=== PATIENT | female | born 1990 | race Hispanic/Latino ===

== ENCOUNTER 2020-09-05 07:49 | Day surgery (SDC) | payer OTHER ==
[2020-09-05] MEDS ORDERED: Ringers Lactate 1,000 ML IV ONE ×3 (08:28→12:34)
[2020-09-05] MEDS ORDERED: CEFAZOLIN/SWI 1gm 1 GM/10 ML SYR ONE (08:28)
[2020-09-05 08:44] VITALS: O2SAT 100
[2020-09-05] MEDS ORDERED: LIDOCAINE 2% MPF 5 ML VIAL ONE (09:17)
[2020-09-05] MEDS ORDERED: MIDAZOLAM HCL 2 MG/2 ML INJ ONE (09:17)
[2020-09-05] MEDS ORDERED: propofoL 200 MG/20 ML VIAL IV ONE (09:17)
[2020-09-05] MEDS ORDERED: GLYCOPYRROLATE 0.2 MG/ML SYR ONE ×2 (09:17)
[2020-09-05] MEDS ORDERED: ROCURONIUM 50 MG/5 ML VIAL IV ONE ×2 (09:18→10:04)
[2020-09-05] MEDS ORDERED: FENTANYL CITR 250 MCG/5 ML ONE (09:18)
[2020-09-05] MEDS ORDERED: ONDANSETRON 4 MG/2 ML VIAL ONE ×2 (09:18→14:16)
[2020-09-05] MEDS ORDERED: FENTANYL CITR 100 MCG/2 ML ONE (10:58)
[2020-09-05] MEDS ORDERED: Mastisol Adhesive Liq ONE ×3 (11:37→15:23)
[2020-09-05] MEDS ORDERED: EPHEDRINE SULF 50 MG/ML VIAL ONE (12:02)
[2020-09-05] MEDS ORDERED: dexAMETHasone 10 MG/ML VIAL ONE (12:30)
[2020-09-05] MEDS ORDERED: MEPERIDINE HCL 25 MG/ML SYR ONE (13:31)
[2020-09-05] MEDS: HYDROMORPHONE HCL 1 MG/ML INJ ONE ×2 (14:00→14:08)
[2020-09-05] MEDS ORDERED: KETOROLAC 30 MG/ML INJ ONE (14:01)
[2020-09-05] MEDS ORDERED: SCOPOLAMINE HYDROBROMIDE PATCH TD ONE (14:19)
[2020-09-05] MEDS ORDERED: dexAMETHasone 4 MG/ML VIAL ONE (15:11)
[2020-09-05] MEDS ORDERED: ONDANSETRON 4 MG (ODT) TAB PO ONE (16:00)
[2020-09-05] MEDS ORDERED: ONDANSETRON 4 MG (ODT) TAB ONE (16:21)
[2020-09-05 17:02] VITALS: BP 111/55; TEMP 97
--- NOTE | 2020-09-05 18:55 | OP ---
Surgeon: Jeramie Fitzgerald MD Preoperative Diagnosis: Scar of the abdomen, status post abdominoplasty and excess fat skin of the back. Postoperative Diagnosis: Scar of the abdomen, status post abdominoplasty and excess fat skin of the back. Procedures Performed: Abdominoplasty, revision of scars and back. Anesthesia: General. Procedure In Detail: After satisfactory induction of general anesthesia, she was placed on the operating table. The anterior abdominal wall was prepped with DuraPrep. Dry sterile drapes were applied in the usual manner. A scalpel was used to make a transverse incision about 0.5 cm above the previous transverse incision and elliptical incision around the umbilicus. We dissected down to the fascia and flaps were elevated well to the umbilicus and then elevated towards the xiphoid and costal margin. After this was done, electrocautery was used for hemostasis and then inferior dissection was performed down toward the pubic bone, approximately 4 cm to 6 cm were taken inferiorly. The flap was advanced. The flap was then closed. A 10 DARLIN was brought out laterally, sewn in place with 2-0 silk. Quilting sutures of 3-0 Vicryl placed. 3-0 PDS running suture to the decreased the diameter of the enlarged umbilicus. Then, the wounds were closed with 3-0 Vicryl quilting sutures, 3-0 Vicryl deep dermis followed by 3-0 PDS in running subcuticular from lateral to medial, tied in vertical meridian of the abdomen, and the umbilicus was closed with a running 4-0 PDS suture. Dressed with tinc of benzoin, Steri-Strips, then 4x4s and a sterile dressing. The patient then was turned over on her abdomen, was re-prepped and draped in DuraPrep and then the outlined and predetermined area was incised and then cut with electrocautery and cut out approximately 100 g removed posteriorly, dissection down to the fascia and the lateral fat pads left in place. Then, the wound was closed with 3 o vicryl on Waldemar fascia, 3-0 Vicryl subcu, and 3-0 PDS running subcuticular tied from lateral, centrally tied in the midline of back. Dressed with tinc of benzoin, Steri-Strips, 4x4s, and tape. The patient tolerated the procedure well. DARLIN drain was sewn in place with 2-0 silk. The patient tolerated the procedure well and returned to Recovery. GH/BAILEY Voice ID: [id number] Report ID: [id number]
== END 2020-09-05 16:30 | disposition home or self-care (01) ==
LOC: OR 07:49
PROVIDERS: ATTEND Specialist
PROC: 0J070ZZ Alteration of Back Subcutaneous Tissue and Fascia, Open Approach (ICD-10-PCS; 2020-09-05)
PROC: 0HB7XZZ Excision of Abdomen Skin, External Approach (ICD-10-PCS; principal; 2020-09-05 09:00)
DX: L98.7 Excessive and redundant skin and subcutaneous tissue (principal); E65 Localized adiposity; L90.5 Scar conditions and fibrosis of skin; Z20.822 Contact with and (suspected) exposure to COVID-19
CPT/HCPCS: 11406; 81025; 15839; J2704; J1100 ×2; J2250; J3010 ×2; J2175; J1170; J0690; J7120 ×3; J2405 ×2